=== PATIENT | male | born 1950 | race African-American/Black ===

== ENCOUNTER 2019-04-25 12:08 | Inpatient (IN) | payer MEDICARE, OTHER, SELFPAY ==
[2019-04-25 12:36] LABS: #Eosinphils 0.1 thou/uL (0.0-0.7); #Lymphocytes 2.3 thou/uL (1.20-3.40); #Monocytes 0.6 thou/uL (0.11-0.59); #Neutrophils 4.7 thou/uL (1.40-6.50); %Basophils 0.3 % (0.0-1.0); %Eosinophils 0.9 % (0.0-10.0); %Lymphocytes 29.7 % (21.0-51.0); %Monocytes 7.4 % (0.0-10.0); %Neutrophils 61.8 % (42.0-75.0); Mean Corpuscular HGB CONC 33.2 g/dL (32.0-36.0); Mean Corpuscular Hemoglobin 31.5 pg (27.0-31.0); Mean Platelet Volume 7.8 fL (7.4-10.4); Platelet Count 227 thou/uL (130-400); RBC Distribution Width 13.6 % (11.5-14.5); Red Blood Cell (RBC) Count 4.76 mill/uL (4.70-6.10); White Blood Cell (WBC) Count 7.6 thou/uL (4.8-10.8)
[2019-04-25 12:48] LABS: Acetaminophen Less than 6.0 mcg/mL (10.0-30.0); Alcohol Less than 10 mg/dL (Less than 10); Salicylate Less than 8.0 mg/dL (15.0-30.0)
[2019-04-25 12:57] LABS: ALT (SGPT) 10 U/L (8-55); AST (SGOT) 15 U/L (5-34); Albumin 4.4 g/dL (3.4-4.8); Alkaline Phosphatase 71 U/L (40-110); Anion Gap 13 mmol/L (10-20); BUN (Urea Nitrogen) 20 mg/dL (8.4-25.7); Bilirubin, Total 0.6 mg/dL (0.2-1.2); Calc. Creatinine Clearance 0 mL/min (70-130); Calcium 8.9 mg/dL (7.8-10.44); Carbon Dioxide 28 mmol/L (23-31); Chloride 102 mmol/L (98-107); Estimated GFR-MDRD 53; Globulin 2.6 g/dL (2.4-3.5); Glucose 139 mg/dL (80-115); Lipase 12 U/L (8-78); Potassium 3.6 mmol/L (3.5-5.1); Sodium 139 mmol/L (136-145)
--- NOTE | 2019-04-25 13:05 | CT ---
EXAM: Brain CT scan Without contrast: HISTORY: Altered mental status, history of prior brain mass removal COMPARISON: None FINDINGS: Extensive right frontal craniotomy. Focal area of encephalomalacia nearly replacing the anterior righ t temporal lobe region with some associated brain volume loss and some secondary dilatation of the frontal horn of the right lateral ventricle and temporal horn of the right lateral ventricle evidence for considerable brain volume loss. There is an area of abnormal attenuation soft tissue density which appears to be centered in the shelly on of the right cavernous sinus extending into the sellar and suprasellar region, medial temporal fossa, and posteriorly into the right anterior posterior fossa somewhat displacing the basilar artery . This appears to be most consistent with residual or recurrent tumor mass, presumably meningioma. Atrophy and chronic white matter ischemic change. No intra or extra-axial hemorrhage. The visualized sinuses and mastoids are clear of acute process. IMPRESSION: Extensive post right temporal craniotomy with encephalomalacia and some associated brain volume loss. Evidence for recurrent or residual tumor centered in the right cavernous sinus region as above, favor ed to be meningioma. Correlation with prior imaging done elsewhere is recommended.
[2019-04-25 13:10] LABS: CKMB 1.5 ng/mL (0-6.6)
[2019-04-25 13:43] LABS: Bilirubin Negative (Negative); Blood, Urine Negative (Negative); Clarity Clear (Clear); Glucose, Urine (Dipstick) Normal (Negative); Leukocyte Negative Leu/uL (Negative); Nitrite Negative (Negative); Protein, Urine (Dipstick) 20 mg/dL (Neg-Trace)
[2019-04-25 13:49] LABS: Amphetamine Not Detected (NotDetected); Barbiturates Screen Not Detected (NotDetected); Benzodiazepine Screen Not Detected (NotDetected); Cocaine Metabolite Screen Not Detected (NotDetected); Medtox Control Line Valid? VALID (VALID); Medtox Reader # READER 1; Methadone Not Detected (NotDetected); Methamphetamine Not Detected (NotDetected); Opiate Screen Not Detected (NotDetected); Oxycodone Screen Not Detected (NotDetected); Phencyclidine (PCP) Not Detected (NotDetected); THC/Cannabinoid Screen Not Detected (NotDetected); Tricyclic Screen Not Detected (NotDetected)
[2019-04-25] MEDS ORDERED: Aspirin Chewable 81 MG TAB ONE (14:45)
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
[2019-04-25] MEDS ORDERED: Acetaminophen 325 MG TAB PO PRN (20:00)
[2019-04-25] MEDS ORDERED: Lorazepam 2 MG/ML VIAL SLOW IVP PRN (20:00)
[2019-04-25 20:18] VITALS: BMI 28.0
[2019-04-25] MEDS: Famotidine 20 MG TAB PO SCH (21:07)
[2019-04-25 21:36] LABS: CKMB 1.2 ng/mL (0-6.6)
[2019-04-26 04:44] LABS: #Basophils 0.1 thou/uL (0.0-0.2); #Eosinphils 0.2 thou/uL (0.0-0.7); #Lymphocytes 3.4 thou/uL (1.20-3.40); #Monocytes 0.8 thou/uL (0.11-0.59); #Neutrophils 3.2 thou/uL (1.40-6.50); %Basophils 0.9 % (0.0-1.0); %Eosinophils 2.8 % (0.0-10.0); %Lymphocytes 43.9 % (21.0-51.0); %Monocytes 10.5 % (0.0-10.0); %Neutrophils 41.9 % (42.0-75.0); Hemoglobin 13.9 g/dL (14.0-18.0); Mean Corpuscular HGB CONC 32.5 g/dL (32.0-36.0); Mean Corpuscular Hemoglobin 30.8 pg (27.0-31.0); Mean Corpuscular Volume 94.6 fL (78.0-98.0); Mean Platelet Volume 7.7 fL (7.4-10.4); Platelet Count 200 thou/uL (130-400); RBC Distribution Width 13.5 % (11.5-14.5); Red Blood Cell (RBC) Count 4.51 mill/uL (4.70-6.10); White Blood Cell (WBC) Count 7.7 thou/uL (4.8-10.8)
[2019-04-26 05:01] LABS: Anion Gap 15 mmol/L (10-20); BUN (Urea Nitrogen) 16 mg/dL (8.4-25.7); Calc. Creatinine Clearance 109 mL/min (70-130); Calcium 8.9 mg/dL (7.8-10.44); Carbon Dioxide 25 mmol/L (23-31); Chloride 103 mmol/L (98-107); Estimated GFR-MDRD Greater than 90; Glucose 91 mg/dL (80-115); Potassium 3.6 mmol/L (3.5-5.1); Sodium 139 mmol/L (136-145)
[2019-04-26] MEDS: Famotidine 20 MG TAB PO SCH ×2 (08:29→21:27)
[2019-04-26] MEDS ORDERED: levETIRAcetam 500 MG TAB PO SCH (09:45)
--- NOTE | 2019-04-26 11:10 | PDOC.HOSPP ---
- Subjective Encounter Date: 04/26/19 Encounter Time: 11:08 Subjective: Mr. White was seen today in follow-up of probable seizure. he does not have any complaints today. - Objective Vital Signs & Weight: Vital Signs (12 hours) Temp Pulse Resp BP BP BP Pulse Ox 04/26/19 08:26 98.8 F 70 16 138/83 95 04/26/19 04:00 98.5 F 69 16 131/81 98 04/25/19 23:30 98.6 F 82 18 144/89 H 98 Weight Weight 266 lb 8 oz I&O: 04/25/19 04/26/19 04/27/19 06:59 06:59 06:59 Intake Total 310 Balance 310 Result Diagrams: 04/26/19 04:27 04/26/19 04:27 Additional Labs: Accuchecks 04/25/19 12:29 POC Glucose 145 H Hospitalist ROS - Medication Medications: Active Medications Generic Name Dose Route Start Last Admin Trade Name Freq PRN Reason Stop Dose Admin Famotidine 20 mg 04/25/19 21:00 04/26/19 08:29 Pepcid PO 20 mg BID LIZBETH Administration Influenza Virus Vaccine 180 mcg 04/26/19 21:00 04/26/19 08:30 Fluzone High-Dose 2019-20 Syr IM 04/26/19 21:01 Not Given .ONCE ONE Levetiracetam 500 mg 04/26/19 09:45 04/26/19 09:51 Keppra PO 04/26/19 11:45 500 mg NOW LIZBETH Administration Pneumococcal 13-Valent Conj Vacc 0.5 ml 04/26/19 21:00 04/26/19 08:30 Prevnar IM 04/26/19 21:01 Not Given .ONCE ONE - Exam Eye: PERRL, anicteric sclera Heart: RRR, no murmur, no gallops, no rubs, normal peripheral pulses Respiratory: CTAB, no wheezes, no rales, no ronchi, normal chest expansion, no tachypnea, normal percussion Gastrointestinal: soft, non-tender, non-distended, normal bowel sounds, no palpable masses, no hepatomegaly, no splenomegaly Extremities: no cyanosis, no clubbing, no edema Hosp A/P (1) Seizure Code(s): R56.9 - UNSPECIFIED CONVULSIONS Status: Acute (2) Brain mass Code(s): G93.89 - OTHER SPECIFIED DISORDERS OF BRAIN Status: Acute - Plan * Seizure - will await EEG results, and Neurology evaluation * Elevated troponin's- ? etiology- will check an Echo * Continue seizure precautions
--- NOTE | 2019-04-26 15:22 | EEG ---
Referring Physician: Kelin ADLER EEG # [id number] TEST TYPE: ROUTINE PORTABLE INPATIENT REPORT: AN EEG USING THE INTERNATIONAL TEN-TWENTY SYSTEM OF ELECTRODE PLACEMENT WAS PERFORMED. The waking background is a 8 hertz alpha frequency. There is superimposed theta frequency slowing seen over the right hemisphere. No epileptiform features were seen. The patient remained awake throughout the study. Photic stimulation was unremarkable. IMPRESSION: THIS IS AN ABNORMAL STUDY FOR THE FINDINGS OF FOCAL SLOWING OVER THE RIGHT HEMISPHERE CONSISTENT WITH A STRUCTURAL LESION. Phosphorus Processing Supervisor: CHRIS School Superintendent: [email or web address]
[2019-04-26] MEDS ORDERED: FLU VACC TS2019-20(65YR UP)/PF 180 MCG/0.5 ML SYRINGE IM ONE (21:00)
[2019-04-26] MEDS ORDERED: Prevnar 13-Val Conj/PF 0.5 ML SYRINGE IM ONE (21:00)
[2019-04-26] MEDS: levETIRAcetam 500 MG TAB PO SCH (21:27)
[2019-04-27] MEDS: levETIRAcetam 500 MG TAB PO SCH (09:19)
[2019-04-27] MEDS: Famotidine 20 MG TAB PO SCH (09:19)
[2019-04-27 12:09] VITALS: BP 130/82; TEMP 98.3
--- NOTE | 2019-04-27 12:18 | PDOC.HOSPP ---
- Subjective Encounter Date: 04/27/19 Encounter Time: 12:16 Subjective: Mr. White was seen today in follow-up of new onset seizure. He does not have any complaints today. - Objective Vital Signs & Weight: Vital Signs (12 hours) Temp Pulse Resp BP BP Pulse Ox 04/27/19 11:14 98.3 F 71 16 130/82 96 04/27/19 07:18 98.1 F 75 12 145/96 H 93 L 04/27/19 04:00 97.8 F 62 16 151/96 H 97 Weight Weight 266 lb 8 oz I&O: 04/26/19 04/27/19 04/28/19 06:59 06:59 06:59 Intake Total 310 260 Balance 310 260 Result Diagrams: 04/26/19 04:27 04/26/19 04:27 Hospitalist ROS - Medication Medications: Active Medications Generic Name Dose Route Start Last Admin Trade Name Freq PRN Reason Stop Dose Admin Famotidine 20 mg 04/25/19 21:00 04/27/19 09:19 Pepcid PO 20 mg BID LIZBETH Administration Levetiracetam 500 mg 04/26/19 21:00 04/27/19 09:19 Keppra PO 500 mg BID LIZBETH Administration - Exam Eye: PERRL Heart: RRR, no murmur, no gallops Respiratory: CTAB, no wheezes, no rales, no ronchi, normal chest expansion, no tachypnea, normal percussion Gastrointestinal: soft, non-tender, non-distended, normal bowel sounds, no palpable masses, no hepatomegaly Extremities: no cyanosis, no edema Hosp A/P (1) Seizure Code(s): R56.9 - UNSPECIFIED CONVULSIONS Status: Acute (2) Brain mass Code(s): G93.89 - OTHER SPECIFIED DISORDERS OF BRAIN Status: Acute - Plan * 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 * Continue Keppra as recommended by Neurology * No driving at least 6-12 months-discussed with the patient * HTN- will start Lisinopril- risks and benefits explained for both * Stable for discharge home
--- NOTE | 2019-04-28 04:25 | DIS ---
DATE OF ADMISSION: 04/25/2019 DATE OF DISCHARGE: 04/27/2019 PRIMARY CARE PHYSICIAN: At the [facility] in [place]. DISCHARGE DISPOSITION: Home. PRIMARY DISCHARGE DIAGNOSES: 1. New-onset seizure. 2. History of benign brain tumor. 3. Hypertension. 4. Probable meningioma. DISCHARGE MEDICATIONS: Include; 1. Lisinopril 5 mg daily. 2. Keppra 500 mg twice daily. 3. Flomax 0.4 mg daily. 4. He uses a Lidoderm patch p.r.n. 5. Latanoprost 0.05% one drop in each eye at bedtime. 6. Vitamin D3 at 50,000 units p.o. daily. 7. Atorvastatin 20 mg at bedtime. CODE STATUS: Full code. ALLERGIES: NO KNOWN DRUG ALLERGIES. IMAGING: During the hospital stay, the patient had a CT scan of the brain in which there was extensive post right temporal craniotomy with encephalomalacia with associated brain volume loss. There was evidence of recurrent or residual tumor centered around the right cavernous sinus. Favored to be a meningioma. The patient also had an echocardiogram in which the ejection fraction was estimated at 55% to 60%. There was some E to A flow reversal noted suggestive of diastolic dysfunction. HOSPITAL COURSE: Mr. White is a pleasant 68-year-old gentleman who presented to the emergency room after having an episode of altered mental status while he was at [employer]. This happened again when he was in the emergency room and it appears to be a partial seizure. He was admitted and Neurology was consulted. He was started on Keppra. EEG results were essentially nonspecific, but he did not have any seizure activity during the time. However, it is most likely a seizure. His troponins were elevated, but it is suspected this could be as a result of the acute seizure as well. The patient is currently stable. No complaints and will be discharged home in stable condition, to follow up at the [facility] in 1 to 2 weeks and also with his neurologist or Dr. Lockhart as instructed. He also was instructed that he cannot drive until he is cleared by the neurologist nor operate any heavy machinery or any type of water sports or activities. Job ID: [id number]
--- NOTE | 2019-04-28 05:48 | PQF ---
SAP Sludge Control Operator Crystal Reports Winform ViewerROBERSON WILLJAYA GARCÍA MD [id number] CLINICAL DOCUMENTATION CLARIFICATION FORM: POST DISCHARGE Addendum to original discharge summary date: ____ Late entry note date: __ DATE: 04/28/2019 ATTN:JAYA ADLER MD Please exercise your independent, professional judgment in responding to the clarification form. Clinical indicators are provided on the bottom of this form for your review Please check appropriate box(s): Kindly Provide whether Patient was now diagnosed with recurrent brain tumor or Hx of brain tumor [ ] Diagnosed with recurrent brain tumor [ X ] Diagnosed with Hx of brain tumor [ ] Other diagnosis [ ] Unable to determine In addition, please specify: Present on Admission (POA): [ X ] Yes [ ] No [ ] Unable to determine For continuity of documentation, please document condition throughout progress notes and discharge summary. Thank You. CLINICAL INDICATORS - SIGNS / SYMPTOMS / LABS Sudden AMS - Documented in H&P on 04/25 by JAYA ADLER MD Seizure due to Previous Brain Tumor - Documented in Hospital PNs on 04/25 by JAYA ADLER MD Brain Mass - Documented in Hospital PNs on 04/25 by JAYA ADLER MD There is evidence of recurrent or residual tumor centered around RT vacernous sinus region favored to be a meningioma - Documented in Hospital PNs on 04/25 by JAYA ADLER MD Posable meningioma - Documented in DS on 04/27 by JAYA ADLER MD RISK FACTORS HTN - Documented in Hospital PNs on 04/25 by JAYA ADLER MD hx of Meningioma - Documented in Hospital PNs on 04/25 by JAYA ADLER MD New onset of Seizure - Documented in Hospital PNs on 04/25 by JAYA ADLER MD TREATMENT: Continue Keppra as recommended by Neurology - Documented in Hospital PNs on by JAYA ADLER MD Brain CT SAP Sludge Control Operator Crystal Reports Winform Viewer (This form is maintained as a part of the permanent medical record) 2014 [employer]. All Rights Reserved [email or web address] [not provided] MTDD
--- NOTE | 2019-04-29 | PQF ---
SAP Net Developer Software Engineer C Crystal Reports Winform ViewerROBERSON WILL JAYA ADLER MD [id number] [facility] [place] [place] [id number] CLINICAL DOCUMENTATION CLARIFICATION FORM: POST DISCHARGE Addendum to original discharge summary date: ____ Late entry note date: __ DATE: 04/28/2019 ATTN:JAYA ADLER MD Please exercise your independent, professional judgment in responding to the clarification form. Clinical indicators are provided on the bottom of this form for your review Please check appropriate box(s): [ ] Encephalopathy: Type: [ ] Acute [ ] Subacute [ ] Chronic Etiology: [ ] Hypertensive [ ] Metabolic [ ] Toxic [ ] Unspecified [ ] in the setting of underlying dementia [ ] Other (please specify) [ ] Transient Alteration of Awareness [ X] Other diagnosis ___Seizure disorder with acute seizure [ ] Unable to determine In addition, please specify: Present on Admission (POA): [X ] Yes [ ] No [ ] Unable to determine For continuity of documentation, please document condition throughout progress notes and discharge summary. Thank You. CLINICAL INDICATORS - SIGNS / SYMPTOMS / LABS Sudden AMS - Documented in H&P on 04/25 by JAYA ADLER MD Possible meningioma - Documented DS on 04/27 by JAYA VELIZ MD Seizure due to previous brain tumor - Documented in Hospital PNs on 04/25 by JAYA ADLER MD New onset of seizure - Documented in Hospital PNs on 04/25 by JAYA ADLER MD Post RT temporal craniotomy with encephalomalacia with associated brain volume loss - Documented DS on 04/27 by JAYA VELIZ MD Partial seizure in Emergency room - Documented DS on 04/27 by JAYA VELIZ MD RISK FACTORS HTN Hx of meningioma - Documented in H&P on 04/25 by JAYA ADLER MD Brain Mass TREATMENTS: Continue Keppra - Documented in Hospital PNs on 04/25 by JAYA ADLER MD EEG SAP Net Developer Software Engineer C Crystal Reports Winform Viewer (This form is maintained as a part of the permanent medical record) 2014 [employer]. All Rights Reserved [email or web address] [not provided] MTDD
--- NOTE | 2019-05-05 03:43 | PQF ---
SAP Sewage Plant Operator Crystal Reports Winform ViewerREYNOL[facility] JAYA BROOKS MD [id number] [facility] [place] [place] [id number] CLINICAL DOCUMENTATION CLARIFICATION FORM: POST DISCHARGE Addendum to original discharge summary date: ____ Late entry note date: __ DATE: 05/05/2019 ATTN: JAYA ADLER MD Please exercise your independent, professional judgment in responding to the clarification form. Clinical indicators are provided on the bottom of this form for your review Please check appropriate box(s) to clarify if the following diagnosis has been ruled in or ruled out: NSTEMI____(CDI/Coding list diagnosis here) [ ] Ruled in diagnosis [ ] Continue to treat [ ] Resolved [ ] Ruled out diagnosis [ ] Cannot rule out diagnosis [ X ] Other diagnosis _Elevated troponins due to seizure [ ] Unable to determine In addition, please specify: Present on Admission (POA): [ X] Yes [ ] No [ ] Unable to determine For continuity of documentation, please document condition throughout progress notes and discharge summary. Thank You. CLINICAL INDICATORS - SIGNS / SYMPTOMS / LABS Elevated Troponin 0.229 on 04/25 and 0.172 on 04/26 - Documented in Laboratory His troponin were elevated, but it is suspected this could be as result of the acute seizure as well - Documented in DS on 04/27 by Eugene Baxter RISK FACTORS HTN Recurrent brain tumor TREATMENTS EKG Echocardiogram Aspirin 81 mg - Medication report SAP Sewage Plant Operator Crystal Reports Winform Viewer(This form is maintained as a part of the permanent medical record) 2014 [employer]. All Rights Reserved [email or web address] [not provided] MTDD
== END 2019-04-27 15:20 | disposition home or self-care (01) | DRG 101 ==
LOC: ERS 12:08 → 2NO 18:36 → INTOOBSV 18:36 → OBSVTOIN 18:36 → 2SE 04-26 13:08
PROVIDERS: ADMIT Internal Medicine; ATTEND Internal Medicine
PROC: 4A023FZ Measurement of Cardiac Rhythm, Percutaneous Approach (ICD-10-PCS; principal; 2019-04-26)
PROC: 4A0234Z Measurement of Cardiac Electrical Activity, Percutaneous Approach (ICD-10-PCS; 2019-04-26)
DX: G40.109 Localization-related (focal) (partial) symptomatic epilepsy and epileptic syndromes with simple partial seizures, not intractable, without status epilepticus (principal); G93.89 Other specified disorders of brain; I10 Essential (primary) hypertension; Z98.890 Other specified postprocedural states; R40.2412 Glasgow coma scale score 13-15, at arrival to emergency department
CPT/HCPCS: 36415; 36416; 70450; 80048; 80053; 80306; 80307; 81003; 82553; 83690; 84146; 84484; 85025; 93005; 93306; 95816; 95819

== ENCOUNTER 2021-06-24 12:30 | Inpatient (IN) | payer MEDICARE ==
[2021-06-24] MEDS ORDERED: Cefepime 2 GM VIAL ONE (12:59)
[2021-06-24 13:31] LABS: #Lymphocytes 1.6 thou/uL (1.20-3.40); #Monocytes 0.5 thou/uL (0.11-0.59); %Eosinophils 0.2 % (0.0-10.0); %Lymphocytes 12.8 % (21.0-51.0); %Monocytes 4.3 % (0.0-10.0); %Neutrophils 82.6 % (42.0-75.0); Hemoglobin 16.2 g/dL (14.0-18.0); Mean Corpuscular HGB CONC 33.5 g/dL (32.0-36.0); Mean Corpuscular Hemoglobin 32.2 pg (27.0-31.0); Mean Corpuscular Volume 95.9 fL (78.0-98.0); Mean Platelet Volume 8.3 fL (7.4-10.4); Platelet Count 223 thou/uL (130-400); RBC Distribution Width 13.3 % (11.5-14.5); Red Blood Cell (RBC) Count 5.04 mill/uL (4.70-6.10); White Blood Cell (WBC) Count 12.1 thou/uL (4.8-10.8)
[2021-06-24 13:34] LABS: Bacteria/HPF None Seen HPF (None Seen); Bilirubin Negative (Negative); Blood, Urine Negative (Negative); Clarity Clear (Clear); Glucose, Urine (Dipstick) Normal (Negative); Ketone, Urine 10 mg/dL (Negative); Leukocyte Negative Leu/uL (Negative); Nitrite Negative (Negative); Protein, Urine (Dipstick) 50 mg/dL (Neg-Trace); RBC/HPF None Seen HPF (0-3); Specific Gravity, Urine 1.027 (1.002-1.036); Squamous Epithelial None Seen HPF (0-3); WBC/HPF 0-3 HPF (0-3)
[2021-06-24 13:38] LABS: Amphetamine Not Detected (NotDetected); Barbiturates Screen Not Detected (NotDetected); Benzodiazepine Screen Not Detected (NotDetected); Cocaine Metabolite Screen Not Detected (NotDetected); Methadone Not Detected (NotDetected); Methamphetamine Not Detected (NotDetected); Opiate Screen Not Detected (NotDetected); Oxycodone Screen Not Detected (NotDetected); Phencyclidine (PCP) Not Detected (NotDetected); THC/Cannabinoid Screen Not Detected (NotDetected); Tricyclic Screen Not Detected (NotDetected)
[2021-06-24 13:53] LABS: Acetaminophen Less than 6.0 mcg/mL (10.0-30.0); Alcohol Less than 10 mg/dL (Less than 10); Salicylate Less than 8.0 mg/dL (15.0-30.0)
[2021-06-24 14:16] LABS: CKMB 5.4 ng/mL (0-6.6)
[2021-06-24 15:15] LABS: Albumin 3.9 g/dL (3.4-4.8)
[2021-06-24 15:16] LABS: Chloride 104 mmol/L (98-107); Potassium 3.4 mmol/L (3.5-5.1); Sodium 142 mmol/L (136-145)
[2021-06-24 15:17] LABS: Calcium 9.7 mg/dL (7.8-10.44)
[2021-06-24 15:18] LABS: Globulin 3.7 g/dL (2.4-3.5); Glucose 103 mg/dL (83-110); Protein, Total 7.6 g/dL (5.8-8.1)
[2021-06-24 15:19] LABS: Anion Gap 24 mmol/L (10-20); Carbon Dioxide 17 mmol/L (23-31)
[2021-06-24] MEDS ORDERED: Vancomycin 1 GM/200 ML BAG ONE (15:19)
[2021-06-24 15:20] LABS: Alkaline Phosphatase 82 U/L (40-110); Bilirubin, Total 0.6 mg/dL (0.2-1.2)
[2021-06-24 15:21] LABS: Calc. Creatinine Clearance 0 mL/min (70-130)
[2021-06-24 15:22] LABS: BUN (Urea Nitrogen) 26 mg/dL (8.4-25.7)
[2021-06-24 15:23] LABS: AST (SGOT) 85 U/L (5-34)
[2021-06-24 15:24] LABS: ALT (SGPT) 45 U/L (8-55); CK (CPK) 2275 U/L (30-200); Lipase 59 U/L (8-78)
[2021-06-24] MEDS ORDERED: Guaifenesin DM 100-10/5 ML UDCUP PO PRN (15:33)
[2021-06-24] MEDS ORDERED: HYDROcodone/Acetaminophen 5/325 mg Tablet PO PRN (15:33)
[2021-06-24] MEDS ORDERED: Loperamide HCl 2 MG CAP PO PRN (15:33)
[2021-06-24] MEDS ORDERED: Ondansetron PF 4 MG/2 ML Vial IVP PRN (15:33)
[2021-06-24] MEDS ORDERED: Senokot S 8.6-50 MG TAB PO PRN (15:33)
[2021-06-24] MEDS ORDERED: Acetaminophen 325 MG TAB PO PRN (15:33)
[2021-06-24 17:04] LABS: Troponin I 0.031 ng/mL (< 0.028)
[2021-06-24] MEDS ORDERED: FLU VACC QS2021-22(65YR UP)/PF 240 MCG/0.7 ML SYRINGE IM ONE (18:00)
[2021-06-24] MEDS: Sodium Chloride 0.9% 1,000 ML IV SCH (19:10)
[2021-06-24] MEDS: Famotidine/PF 20 mg/2ml Vial SLOW IVP SCH (20:20)
[2021-06-24 20:22] LABS: SARS-CoV-2 NAA Rapid Test DETECTED (NotDetected)
[2021-06-24 20:35] LABS: Troponin I 0.054 ng/mL (< 0.028)
[2021-06-25 05:43] LABS: #Monocytes 0.7 thou/uL (0.11-0.59); #Neutrophils 5.9 thou/uL (1.40-6.50); %Basophils 0.4 % (0.0-1.0); %Eosinophils 0.3 % (0.0-10.0); %Monocytes 8.3 % (0.0-10.0); %Neutrophils 68.1 % (42.0-75.0); Hemoglobin 13.7 g/dL (14.0-18.0); Mean Corpuscular Hemoglobin 31.5 pg (27.0-31.0); Mean Corpuscular Volume 95.4 fL (78.0-98.0); Mean Platelet Volume 7.9 fL (7.4-10.4); Platelet Count 195 thou/uL (130-400); RBC Distribution Width 13.4 % (11.5-14.5); Red Blood Cell (RBC) Count 4.36 mill/uL (4.70-6.10); White Blood Cell (WBC) Count 8.6 thou/uL (4.8-10.8)
[2021-06-25 06:06] LABS: Anion Gap 24 mmol/L (10-20); BUN (Urea Nitrogen) 23 mg/dL (8.4-25.7); Calc. Creatinine Clearance 65 mL/min (70-130); Calcium 8.3 mg/dL (7.8-10.44); Carbon Dioxide 13 mmol/L (23-31); Chloride 108 mmol/L (98-107); Glucose 84 mg/dL (83-110); Potassium 3.1 mmol/L (3.5-5.1); Sodium 142 mmol/L (136-145)
[2021-06-25] MEDS: Sodium Chloride 0.9% 1,000 ML IV SCH ×2 (08:19→23:42)
[2021-06-25] MEDS: Zinc Sulfate 220 MG CAP PO SCH (08:20)
[2021-06-25] MEDS: Enoxaparin Sodium 40 MG/0.4 ML SYRINGE SC SCH (08:20)
[2021-06-25] MEDS: Famotidine/PF 20 mg/2ml Vial SLOW IVP SCH ×2 (08:20→21:20)
[2021-06-25] MEDS ORDERED: Non-Formulary Item 1 EACH (Cholecalciferol (Vitamin D3) [Vitamin D3] 5,000 UNIT Capsule) PO SCH (09:15)
[2021-06-25] MEDS ORDERED: levETIRAcetam in NS 1,000 MG in Premix Bag 1 BAG IVPB SCH (10:15)
[2021-06-25] MEDS: Hydrocortisone 10 mg Tablet PO SCH ×2 (11:28→21:20)
[2021-06-25] MEDS: cefTRIAXone\\ROCEPHIN 1 GM in Sodium Chloride 0.9% 100 ML IVPB SCH (15:12)
[2021-06-25] MEDS: levETIRAcetam in NS 500 MG in Premix Bag 1 BAG IVPB SCH (21:19)
[2021-06-25] MEDS: Latanoprost 0.005% Ophth Soln 2.5 ml Bottle EA EYE SCH (21:19)
[2021-06-25] MEDS: Atorvastatin Calcium 20 MG TAB PO SCH (21:20)
[2021-06-25] MEDS: Cholecalciferol 1,000 UNITS (25 MCG) TAB PO SCH (21:20)
[2021-06-26 08:36] LABS: Hemoglobin 12.4 g/dL (14.0-18.0); Mean Corpuscular HGB CONC 33.1 g/dL (32.0-36.0); Mean Corpuscular Hemoglobin 31.4 pg (27.0-31.0); Mean Corpuscular Volume 94.8 fL (78.0-98.0); Platelet Count 173 thou/uL (130-400); RBC Distribution Width 13.4 % (11.5-14.5); Red Blood Cell (RBC) Count 3.95 mill/uL (4.70-6.10); White Blood Cell (WBC) Count 6.7 thou/uL (4.8-10.8)
[2021-06-26 08:40] LABS: Anion Gap 4 mmol/L (10-20); BUN (Urea Nitrogen) 13 mg/dL (8.4-25.7); Calc. Creatinine Clearance 80 mL/min (70-130); Calcium 8.3 mg/dL (7.8-10.44); Carbon Dioxide 30 mmol/L (23-31); Chloride 111 mmol/L (98-107); Glucose 130 mg/dL (83-110); Potassium 3.2 mmol/L (3.5-5.1); Sodium 142 mmol/L (136-145)
[2021-06-26] MEDS: Famotidine/PF 20 mg/2ml Vial SLOW IVP SCH ×2 (08:58→20:42)
[2021-06-26] MEDS: Enoxaparin Sodium 40 MG/0.4 ML SYRINGE SC SCH (08:58)
[2021-06-26] MEDS: Tamsulosin HCl 0.4 MG CAP PO SCH (08:59)
[2021-06-26] MEDS: Zinc Sulfate 220 MG CAP PO SCH (08:59)
[2021-06-26] MEDS: Hydrocortisone 10 mg Tablet PO SCH ×3 (08:59→20:42)
[2021-06-26] MEDS: levETIRAcetam in NS 500 MG in Premix Bag 1 BAG IVPB SCH (09:00)
[2021-06-26] MEDS: Lisinopril 5 MG TAB PO SCH (09:03)
[2021-06-26 10:09] LABS: Band 9 % (5-11); Lymphocytes 30 % (21-51); MDiff Complete? YES; Monocytes 6 % (0-10); Neutrophil 54 % (42-75); RBC Morphology Normal; Reactive Lymphocytes 1 % (0-10)
[2021-06-26] MEDS: Sodium Chloride 0.9% 1,000 ML IV SCH ×2 (10:37→23:30)
[2021-06-26] MEDS: cefTRIAXone\\ROCEPHIN 1 GM in Sodium Chloride 0.9% 100 ML IVPB SCH (14:36)
[2021-06-26] MEDS ORDERED: VANCOMYCIN 1.75 GM/350 ML BAG 1.75 GM in Premix Bag 1 BAG IVPB SCH (16:00)
[2021-06-26] MEDS: levETIRAcetam 500 MG TAB PO SCH (20:42)
[2021-06-26] MEDS: Atorvastatin Calcium 20 MG TAB PO SCH (20:42)
[2021-06-26] MEDS: Cholecalciferol 1,000 UNITS (25 MCG) TAB PO SCH (20:42)
[2021-06-26] MEDS: Latanoprost 0.005% Ophth Soln 2.5 ml Bottle EA EYE SCH (20:43)
[2021-06-26 22:44] LABS: Vancomycin, Trough 20.7 ug/mL
[2021-06-27] MEDS: VANCOMYCIN 1.25 GM/250 ML BAG 1.25 GM in Premix Bag 1 BAG IVPB SCH ×2 (05:00→17:30)
[2021-06-27] MEDS: Lisinopril 5 MG TAB PO SCH (08:18)
[2021-06-27] MEDS: Enoxaparin Sodium 40 MG/0.4 ML SYRINGE SC SCH (08:18)
[2021-06-27] MEDS: Hydrocortisone 10 mg Tablet PO SCH ×3 (08:18→21:52)
[2021-06-27] MEDS: levETIRAcetam 500 MG TAB PO SCH ×2 (08:21→21:52)
[2021-06-27] MEDS: Famotidine/PF 20 mg/2ml Vial SLOW IVP SCH ×2 (08:21→21:52)
[2021-06-27] MEDS: Zinc Sulfate 220 MG CAP PO SCH (08:21)
[2021-06-27] MEDS: Tamsulosin HCl 0.4 MG CAP PO SCH (08:21)
[2021-06-27 08:52] LABS: Lactic Acid 1.1 mmol/L (0.5-2.2)
[2021-06-27 09:44] LABS: Chloride 111 mmol/L (98-107); Sodium 141 mmol/L (136-145)
[2021-06-27 09:45] LABS: Calcium 8.4 mg/dL (7.8-10.44)
[2021-06-27 09:46] LABS: Glucose 90 mg/dL (83-110)
[2021-06-27 09:47] LABS: Anion Gap 12 mmol/L (10-20); Carbon Dioxide 21 mmol/L (23-31)
[2021-06-27 09:49] LABS: Calc. Creatinine Clearance 112 mL/min (70-130)
[2021-06-27 09:50] LABS: BUN (Urea Nitrogen) 7 mg/dL (8.4-25.7)
[2021-06-27] MEDS ORDERED: Potassium Chloride 20 MEQ TAB PO SCH (10:45)
[2021-06-27] MEDS: Sodium Chloride 0.9% 1,000 ML IV SCH ×2 (11:41→22:26)
[2021-06-27] MEDS: cefTRIAXone\\ROCEPHIN 1 GM in Sodium Chloride 0.9% 100 ML IVPB SCH (16:44)
[2021-06-27] MEDS: Latanoprost 0.005% Ophth Soln 2.5 ml Bottle EA EYE SCH (21:52)
[2021-06-27] MEDS: Cholecalciferol 1,000 UNITS (25 MCG) TAB PO SCH (21:52)
[2021-06-27] MEDS: Atorvastatin Calcium 20 MG TAB PO SCH (21:52)
[2021-06-28 03:36] LABS: Vancomycin, Trough 19.1 ug/mL
[2021-06-28] MEDS: VANCOMYCIN 1.25 GM/250 ML BAG 1.25 GM in Premix Bag 1 BAG IVPB SCH (03:48)
[2021-06-28] MEDS: Famotidine/PF 20 mg/2ml Vial SLOW IVP SCH ×2 (08:17→20:09)
[2021-06-28] MEDS: Lisinopril 5 MG TAB PO SCH (08:17)
[2021-06-28] MEDS: levETIRAcetam 500 MG TAB PO SCH ×2 (08:17→20:09)
[2021-06-28] MEDS: Enoxaparin Sodium 40 MG/0.4 ML SYRINGE SC SCH (08:17)
[2021-06-28] MEDS: Hydrocortisone 10 mg Tablet PO SCH ×3 (08:17→20:09)
[2021-06-28] MEDS: Zinc Sulfate 220 MG CAP PO SCH (08:18)
[2021-06-28] MEDS: Tamsulosin HCl 0.4 MG CAP PO SCH (08:18)
[2021-06-28] MEDS: Aspirin 81 mg Enteric Coated Tablet PO SCH (09:24)
[2021-06-28] MEDS: Sodium Chloride 0.9% 1,000 ML IV SCH (12:19)
[2021-06-28] MEDS: cefTRIAXone\\ROCEPHIN 1 GM in Sodium Chloride 0.9% 100 ML IVPB SCH (15:40)
[2021-06-28] MEDS: Atorvastatin Calcium 20 MG TAB PO SCH (20:09)
[2021-06-28] MEDS: Latanoprost 0.005% Ophth Soln 2.5 ml Bottle EA EYE SCH (20:09)
[2021-06-28] MEDS: Cholecalciferol 1,000 UNITS (25 MCG) TAB PO SCH (20:09)
[2021-06-29] MEDS: Sodium Chloride 0.9% 1,000 ML IV SCH (03:50)
[2021-06-29 05:07] LABS: #Basophils 0.1 thou/uL (0.0-0.2); #Eosinphils 0.1 thou/uL (0.0-0.7); #Lymphocytes 2.2 thou/uL (1.20-3.40); #Monocytes 0.8 thou/uL (0.11-0.59); #Neutrophils 2.6 thou/uL (1.40-6.50); %Basophils 0.9 % (0.0-1.0); %Eosinophils 1.9 % (0.0-10.0); %Lymphocytes 38.1 % (21.0-51.0); %Monocytes 13.8 % (0.0-10.0); %Neutrophils 45.3 % (42.0-75.0); Hemoglobin 11.6 g/dL (14.0-18.0); Mean Corpuscular HGB CONC 34.2 g/dL (32.0-36.0); Mean Corpuscular Hemoglobin 31.8 pg (27.0-31.0); Mean Corpuscular Volume 93.1 fL (78.0-98.0); Mean Platelet Volume 7.6 fL (7.4-10.4); Platelet Count 239 thou/uL (130-400); RBC Distribution Width 13.3 % (11.5-14.5); Red Blood Cell (RBC) Count 3.63 mill/uL (4.70-6.10); White Blood Cell (WBC) Count 5.7 thou/uL (4.8-10.8)
[2021-06-29 05:43] LABS: Anion Gap 12 mmol/L (10-20); BUN (Urea Nitrogen) 6 mg/dL (8.4-25.7); Calc. Creatinine Clearance 113 mL/min (70-130); Calcium 8.8 mg/dL (7.8-10.44); Carbon Dioxide 27 mmol/L (23-31); Chloride 106 mmol/L (98-107); Glucose 87 mg/dL (83-110); Sodium 142 mmol/L (136-145)
[2021-06-29 05:46] LABS: Potassium 2.6 mmol/L (3.5-5.1)
[2021-06-29] MEDS: Aspirin 81 mg Enteric Coated Tablet PO SCH (08:15)
[2021-06-29] MEDS: Famotidine/PF 20 mg/2ml Vial SLOW IVP SCH (08:15)
[2021-06-29] MEDS: Enoxaparin Sodium 40 MG/0.4 ML SYRINGE SC SCH (08:15)
[2021-06-29] MEDS: Lisinopril 5 MG TAB PO SCH (08:16)
[2021-06-29] MEDS: Zinc Sulfate 220 MG CAP PO SCH (08:16)
[2021-06-29] MEDS: Tamsulosin HCl 0.4 MG CAP PO SCH (08:16)
[2021-06-29] MEDS: levETIRAcetam 500 MG TAB PO SCH ×2 (08:16→20:34)
[2021-06-29] MEDS: Hydrocortisone 10 mg Tablet PO SCH ×3 (08:16→20:32)
[2021-06-29] MEDS: Potassium Chloride 20 MEQ TAB PO SCH ×3 (08:59→17:12)
[2021-06-29] MEDS ORDERED: Iopamidol 370 76% 100 ML VIAL ONE (09:28)
[2021-06-29] MEDS: cefTRIAXone\\ROCEPHIN 1 GM in Sodium Chloride 0.9% 100 ML IVPB SCH (15:46)
[2021-06-29] MEDS: Cholecalciferol 1,000 UNITS (25 MCG) TAB PO SCH (20:32)
[2021-06-29] MEDS: Atorvastatin Calcium 20 MG TAB PO SCH (20:32)
[2021-06-29] MEDS: Famotidine 20 MG TAB PO SCH (20:32)
[2021-06-29] MEDS: Latanoprost 0.005% Ophth Soln 2.5 ml Bottle EA EYE SCH (20:33)
[2021-06-29] MEDS ORDERED: Electrolyte Replacement Protocol FS PRN (23:00)
[2021-06-30 03:10] LABS: Hemoglobin A1c 6.3 % (4.0-6.0)
[2021-06-30 03:22] LABS: Anion Gap 11 mmol/L (10-20); BUN (Urea Nitrogen) 5 mg/dL (8.4-25.7); Calc. Creatinine Clearance 116 mL/min (70-130); Carbon Dioxide 28 mmol/L (23-31); Chloride 105 mmol/L (98-107); Glucose 86 mg/dL (83-110); Sodium 141 mmol/L (136-145)
[2021-06-30 03:23] LABS: Cardiac Risk 5.6 (Less than 4.5)
[2021-06-30] MEDS ORDERED: Potassium Chloride 20 MEQ TAB PO SCH ×2 (04:00→20:00)
[2021-06-30] MEDS: Enoxaparin Sodium 40 MG/0.4 ML SYRINGE SC SCH (09:59)
[2021-06-30] MEDS: Hydrocortisone 10 mg Tablet PO SCH ×3 (10:00→20:46)
[2021-06-30] MEDS: Famotidine 20 MG TAB PO SCH ×2 (10:00→20:45)
[2021-06-30] MEDS: Aspirin 81 mg Enteric Coated Tablet PO SCH (10:00)
[2021-06-30] MEDS: Lisinopril 5 MG TAB PO SCH (10:00)
[2021-06-30] MEDS: Tamsulosin HCl 0.4 MG CAP PO SCH (10:00)
[2021-06-30] MEDS: Zinc Sulfate 220 MG CAP PO SCH (10:00)
[2021-06-30] MEDS: levETIRAcetam 500 MG TAB PO SCH ×2 (10:00→20:45)
[2021-06-30 10:20] LABS: Potassium 2.7 mmol/L (3.5-5.1)
[2021-06-30] MEDS: Potassium Chloride 20 MEQ TAB PO SCH ×2 (10:47→15:42)
[2021-06-30 15:18] LABS: Syphilis Antibody Nonreactive (Nonreactive); Syphilis Antibody Index 0.05 S/CO (<1.00 Non-Reactive)
[2021-06-30] MEDS: cefTRIAXone\\ROCEPHIN 1 GM in Sodium Chloride 0.9% 100 ML IVPB SCH (15:41)
[2021-06-30 19:09] LABS: Potassium 3.5 mmol/L (3.5-5.1)
[2021-06-30] MEDS: Cholecalciferol 1,000 UNITS (25 MCG) TAB PO SCH (20:45)
[2021-06-30] MEDS: Atorvastatin Calcium 20 MG TAB PO SCH (20:45)
[2021-06-30] MEDS: Latanoprost 0.005% Ophth Soln 2.5 ml Bottle EA EYE SCH (20:50)
[2021-06-30 23:29] LABS: Anion Gap 12 mmol/L (10-20); BUN (Urea Nitrogen) 6 mg/dL (8.4-25.7); Calc. Creatinine Clearance 116 mL/min (70-130); Calcium 9.1 mg/dL (7.8-10.44); Carbon Dioxide 26 mmol/L (23-31); Chloride 103 mmol/L (98-107); Glucose 96 mg/dL (83-110); Magnesium 1.7 mg/dL (1.6-2.6); Phosphorus 2.8 mg/dL (2.3-4.7); Potassium 3.4 mmol/L (3.5-5.1); Sodium 138 mmol/L (136-145)
[2021-06-30 23:32] LABS: Troponin I 0.014 ng/mL (< 0.028)
[2021-07-01] MEDS ORDERED: Potassium Chloride 20 MEQ TAB PO SCH (02:00)
[2021-07-01] MEDS ORDERED: Magnesium 2 GM/50 ML 2 GM in Premix Bag 1 BAG IVPB SCH (02:00)
[2021-07-01 02:19] LABS: Potassium 3.9 mmol/L (3.5-5.1)
[2021-07-01 08:19] LABS: Magnesium 2.1 mg/dL (1.6-2.6)
[2021-07-01] MEDS: Hydrocortisone 10 mg Tablet PO SCH ×3 (09:30→20:15)
[2021-07-01] MEDS: Lisinopril 5 MG TAB PO SCH (09:30)
[2021-07-01] MEDS: Aspirin 81 mg Enteric Coated Tablet PO SCH (09:30)
[2021-07-01] MEDS: Tamsulosin HCl 0.4 MG CAP PO SCH (09:30)
[2021-07-01] MEDS: levETIRAcetam 500 MG TAB PO SCH ×2 (09:30→20:15)
[2021-07-01] MEDS: Enoxaparin Sodium 40 MG/0.4 ML SYRINGE SC SCH (09:30)
[2021-07-01] MEDS: Zinc Sulfate 220 MG CAP PO SCH (09:30)
[2021-07-01] MEDS: Famotidine 20 MG TAB PO SCH ×2 (09:30→20:15)
[2021-07-01] MEDS: cefTRIAXone\\ROCEPHIN 1 GM in Sodium Chloride 0.9% 100 ML IVPB SCH (15:44)
[2021-07-01] MEDS: Cholecalciferol 1,000 UNITS (25 MCG) TAB PO SCH (20:15)
[2021-07-01] MEDS: Latanoprost 0.005% Ophth Soln 2.5 ml Bottle EA EYE SCH (20:16)
[2021-07-01] MEDS: Atorvastatin Calcium 20 MG TAB PO SCH (20:16)
[2021-07-02] MEDS: Aspirin 81 mg Enteric Coated Tablet PO SCH (09:06)
[2021-07-02] MEDS: Famotidine 20 MG TAB PO SCH ×2 (09:07→21:14)
[2021-07-02] MEDS: Hydrocortisone 10 mg Tablet PO SCH ×3 (09:07→21:13)
[2021-07-02] MEDS: Enoxaparin Sodium 40 MG/0.4 ML SYRINGE SC SCH (09:07)
[2021-07-02] MEDS: levETIRAcetam 500 MG TAB PO SCH ×2 (09:08→21:21)
[2021-07-02] MEDS: Tamsulosin HCl 0.4 MG CAP PO SCH (09:08)
[2021-07-02] MEDS: Lisinopril 5 MG TAB PO SCH (09:08)
[2021-07-02] MEDS: Zinc Sulfate 220 MG CAP PO SCH (09:09)
[2021-07-02] MEDS: cefTRIAXone\\ROCEPHIN 1 GM in Sodium Chloride 0.9% 100 ML IVPB SCH (15:06)
[2021-07-02] MEDS: Atorvastatin Calcium 20 MG TAB PO SCH (21:14)
[2021-07-02] MEDS: Cholecalciferol 1,000 UNITS (25 MCG) TAB PO SCH (21:16)
[2021-07-02] MEDS: Latanoprost 0.005% Ophth Soln 2.5 ml Bottle EA EYE SCH (21:17)
[2021-07-03] MEDS: levETIRAcetam 500 MG TAB PO SCH ×2 (08:18→20:09)
[2021-07-03] MEDS: Enoxaparin Sodium 40 MG/0.4 ML SYRINGE SC SCH (08:19)
[2021-07-03] MEDS: Zinc Sulfate 220 MG CAP PO SCH (08:19)
[2021-07-03] MEDS: Tamsulosin HCl 0.4 MG CAP PO SCH (08:19)
[2021-07-03] MEDS: Hydrocortisone 10 mg Tablet PO SCH ×3 (08:19→20:10)
[2021-07-03] MEDS: Famotidine 20 MG TAB PO SCH ×2 (08:19→20:09)
[2021-07-03] MEDS: Lisinopril 5 MG TAB PO SCH (08:19)
[2021-07-03] MEDS: Aspirin 81 mg Enteric Coated Tablet PO SCH (08:19)
[2021-07-03 08:48] VITALS: BMI 25.4
[2021-07-03] MEDS: cefTRIAXone\\ROCEPHIN 1 GM in Sodium Chloride 0.9% 100 ML IVPB SCH (15:24)
[2021-07-03] MEDS: Cholecalciferol 1,000 UNITS (25 MCG) TAB PO SCH (20:09)
[2021-07-03] MEDS: Atorvastatin Calcium 20 MG TAB PO SCH (20:10)
[2021-07-03] MEDS: Latanoprost 0.005% Ophth Soln 2.5 ml Bottle EA EYE SCH (20:11)
[2021-07-04] MEDS: Enoxaparin Sodium 40 MG/0.4 ML SYRINGE SC SCH (08:49)
[2021-07-04] MEDS: Tamsulosin HCl 0.4 MG CAP PO SCH (08:50)
[2021-07-04] MEDS: Famotidine 20 MG TAB PO SCH ×2 (08:50→20:22)
[2021-07-04] MEDS: Lisinopril 5 MG TAB PO SCH (08:50)
[2021-07-04] MEDS: Hydrocortisone 10 mg Tablet PO SCH ×3 (08:50→20:23)
[2021-07-04] MEDS: Zinc Sulfate 220 MG CAP PO SCH (08:50)
[2021-07-04] MEDS: Aspirin 81 mg Enteric Coated Tablet PO SCH (08:50)
[2021-07-04] MEDS: levETIRAcetam 500 MG TAB PO SCH ×2 (08:50→20:25)
[2021-07-04] MEDS: Cholecalciferol 1,000 UNITS (25 MCG) TAB PO SCH (20:22)
[2021-07-04] MEDS: Atorvastatin Calcium 20 MG TAB PO SCH (20:22)
[2021-07-04] MEDS: Latanoprost 0.005% Ophth Soln 2.5 ml Bottle EA EYE SCH (20:25)
[2021-07-05] MEDS: Aspirin 81 mg Enteric Coated Tablet PO SCH (09:14)
[2021-07-05] MEDS: Zinc Sulfate 220 MG CAP PO SCH (09:14)
[2021-07-05] MEDS: Famotidine 20 MG TAB PO SCH ×2 (09:14→21:33)
[2021-07-05] MEDS: Enoxaparin Sodium 40 MG/0.4 ML SYRINGE SC SCH (09:14)
[2021-07-05] MEDS: levETIRAcetam 500 MG TAB PO SCH ×2 (09:14→21:34)
[2021-07-05] MEDS: Lisinopril 5 MG TAB PO SCH (09:14)
[2021-07-05] MEDS: Hydrocortisone 10 mg Tablet PO SCH ×3 (09:14→21:32)
[2021-07-05] MEDS: Tamsulosin HCl 0.4 MG CAP PO SCH (09:14)
[2021-07-05] MEDS: Cholecalciferol 1,000 UNITS (25 MCG) TAB PO SCH (21:33)
[2021-07-05] MEDS: Atorvastatin Calcium 20 MG TAB PO SCH (21:34)
[2021-07-05] MEDS: Latanoprost 0.005% Ophth Soln 2.5 ml Bottle EA EYE SCH (21:35)
[2021-07-06] MEDS: Aspirin 81 mg Enteric Coated Tablet PO SCH (08:35)
[2021-07-06] MEDS: Enoxaparin Sodium 40 MG/0.4 ML SYRINGE SC SCH (08:35)
[2021-07-06] MEDS: Zinc Sulfate 220 MG CAP PO SCH (08:36)
[2021-07-06] MEDS: Famotidine 20 MG TAB PO SCH (08:36)
[2021-07-06] MEDS: Tamsulosin HCl 0.4 MG CAP PO SCH (08:36)
[2021-07-06] MEDS: Lisinopril 5 MG TAB PO SCH (08:36)
[2021-07-06] MEDS: levETIRAcetam 500 MG TAB PO SCH (08:36)
[2021-07-06] MEDS: Hydrocortisone 10 mg Tablet PO SCH ×2 (08:40→13:14)
[2021-07-06 11:23] VITALS: TEMP 98.3
[2021-07-06 12:14] VITALS: BP 120/75
== END 2021-07-06 14:30 | disposition home or self-care (01) | DRG 871 ==
LOC: ERS 12:30 → 2NO 15:38 → 2SW 06-26 10:22
PROVIDERS: ADMIT Hospitalist; ATTEND Internal Medicine
PROC: 8E0ZXY6 Isolation (ICD-10-PCS; principal; 2021-06-24)
PROC: 3E03329 Introduction of Other Anti-infective into Peripheral Vein, Percutaneous Approach (ICD-10-PCS; 2021-06-24)
DX: A41.89 Other specified sepsis (principal); J12.82 Pneumonia due to coronavirus disease 2019; U07.1 COVID-19; G93.41 Metabolic encephalopathy; I63.89 Other cerebral infarction; I21.A1 Myocardial infarction type 2; M62.82 Rhabdomyolysis; N17.9 Acute kidney failure, unspecified; E87.2 Acidosis; E87.6 Hypokalemia; R19.7 Diarrhea, unspecified; E11.9 Type 2 diabetes mellitus without complications; G93.89 Other specified disorders of brain; E03.8 Other specified hypothyroidism; G40.909 Epilepsy, unspecified, not intractable, without status epilepticus; Z79.84 Long term (current) use of oral hypoglycemic drugs; Z79.899 Other long term (current) drug therapy
CPT/HCPCS: 36415; 36416; 51701; 70450; 70496; 70498; 70551; 71045; 80048; 80053; 80061; 80202; 80306; 80307; 81003; 81015; 82550; 82553; 83036; 83605; 83690; 83735; 83880; 84100; 84132; 84439; 84443; 84484; 85025; 86140; 86780; 87040; 87086; 87149; 87804; 93005; 93306; 93880; 96365; 96366; 96367; J0692; J0696; J1650; J1953; J3370; J3475; J3490; J7050; Q9967; S0028; U0002

== ENCOUNTER 2021-10-28 12:38 | Emergency (ER) | payer MEDICARE, SELFPAY ==
[2021-10-28] MEDS ORDERED: levETIRAcetam 500 MG/5 ML VIAL ONE (13:12)
[2021-10-28 13:13] LABS: #Basophils 0.1 thou/uL (0.0-0.2); #Eosinphils 0.1 thou/uL (0.0-0.7); #Monocytes 0.4 thou/uL (0.11-0.59); #Neutrophils 5.4 thou/uL (1.40-6.50); %Basophils 1.7 % (0.0-1.0); %Eosinophils 0.7 % (0.0-10.0); %Lymphocytes 25.2 % (21.0-51.0); %Monocytes 4.9 % (0.0-10.0); %Neutrophils 67.5 % (42.0-75.0); Hemoglobin 12.6 g/dL (14.0-18.0); Mean Corpuscular HGB CONC 32.5 g/dL (32.0-36.0); Mean Corpuscular Hemoglobin 32.2 pg (27.0-31.0); Mean Corpuscular Volume 99.1 fL (78.0-98.0); Mean Platelet Volume 8.1 fL (7.4-10.4); Platelet Count 237 thou/uL (130-400); RBC Distribution Width 15.9 % (11.5-14.5); Red Blood Cell (RBC) Count 3.91 mill/uL (4.70-6.10); White Blood Cell (WBC) Count 7.9 thou/uL (4.8-10.8)
[2021-10-28 13:38] LABS: ALT (SGPT) 22 U/L (8-55); AST (SGOT) 15 U/L (5-34); Albumin 3.7 g/dL (3.4-4.8); Alkaline Phosphatase 59 U/L (40-110); Anion Gap 14 mmol/L (10-20); BUN (Urea Nitrogen) 17 mg/dL (8.4-25.7); Bilirubin, Total 0.9 mg/dL (0.2-1.2); Calc. Creatinine Clearance 0 mL/min (70-130); Calcium 8.9 mg/dL (7.8-10.44); Carbon Dioxide 27 mmol/L (23-31); Chloride 103 mmol/L (98-107); Globulin 2.4 g/dL (2.4-3.5); Glucose 112 mg/dL (83-110); Potassium 3.4 mmol/L (3.5-5.1); Protein, Total 6.1 g/dL (5.8-8.1); Sodium 141 mmol/L (136-145)
== END 2021-10-28 15:31 | disposition home or self-care (01) ==
LOC: ERS 12:38
DX: G40.909 Epilepsy, unspecified, not intractable, without status epilepticus (principal); E78.5 Hyperlipidemia, unspecified; E78.00 Pure hypercholesterolemia, unspecified
CPT/HCPCS: 70450; 71045; 80053; 83735; 84484; 85025; 93005; J1953; 36415; 96365; 96366

== ENCOUNTER 2021-11-03 05:10 | Inpatient (IN) | payer OTHER ==
[2021-11-03 06:34] VITALS: BMI 21.9
[2021-11-03] MEDS ORDERED: HumaLOG 300 UNITS/3 ML VIAL SC PRN ×2 (10:47)
[2021-11-03] MEDS ORDERED: Ondansetron PF 4 MG/2 ML Vial IVP PRN (10:47)
[2021-11-03] MEDS ORDERED: Acetaminophen 500 MG TAB PO PRN (10:47)
[2021-11-03] MEDS ORDERED: Dextrose 50% Abboject 50 ML SYRINGE SLOW IVP PRN (10:47)
[2021-11-03] MEDS ORDERED: Dextrose 5% in Water 1,000 ML IV PRN (10:47)
[2021-11-03] MEDS ORDERED: hydrALAZINE 20 MG/ML VIAL SLOW IVP PRN (10:47)
[2021-11-03] MEDS ORDERED: Ondansetron ODT 4 MG TAB PO PRN (10:47)
[2021-11-03] MEDS ORDERED: Potassium Chloride 20 MEQ TAB PO SCH (11:00)
[2021-11-03] MEDS: Potassium Chloride 20 MEQ TAB PO SCH (17:19)
[2021-11-03] MEDS: levETIRAcetam 500 MG TAB PO SCH (20:48)
[2021-11-03] MEDS: Atorvastatin Calcium 40 MG TAB PO SCH (20:48)
[2021-11-03] MEDS: Famotidine 20 MG TAB PO SCH (20:48)
[2021-11-03] MEDS: Latanoprost 0.005% Ophth Soln 2.5 ml Bottle EA EYE SCH (20:48)
[2021-11-04 04:20] LABS: #Eosinphils 0.1 thou/uL (0.0-0.7); #Lymphocytes 3.2 thou/uL (1.20-3.40); #Monocytes 0.6 thou/uL (0.11-0.59); #Neutrophils 3.8 thou/uL (1.40-6.50); %Basophils 0.5 % (0.0-1.0); %Eosinophils 1.5 % (0.0-10.0); %Lymphocytes 41.4 % (21.0-51.0); %Monocytes 8.3 % (0.0-10.0); %Neutrophils 48.3 % (42.0-75.0); Hemoglobin 13.3 g/dL (14.0-18.0); Mean Corpuscular HGB CONC 33.1 g/dL (32.0-36.0); Mean Corpuscular Hemoglobin 32.4 pg (27.0-31.0); Mean Corpuscular Volume 98.1 fL (78.0-98.0); Mean Platelet Volume 8.4 fL (7.4-10.4); Platelet Count 219 thou/uL (130-400); RBC Distribution Width 15.5 % (11.5-14.5); Red Blood Cell (RBC) Count 4.09 mill/uL (4.70-6.10); White Blood Cell (WBC) Count 7.8 thou/uL (4.8-10.8)
[2021-11-04 04:39] LABS: ALT (SGPT) 13 U/L (8-55); AST (SGOT) 14 U/L (5-34); Albumin 3.8 g/dL (3.4-4.8); Alkaline Phosphatase 62 U/L (40-110); Anion Gap 14 mmol/L (10-20); BUN (Urea Nitrogen) 11 mg/dL (8.4-25.7); Calc. Creatinine Clearance 101 mL/min (70-130); Calcium 9.4 mg/dL (7.8-10.44); Carbon Dioxide 25 mmol/L (23-31); Chloride 101 mmol/L (98-107); Globulin 2.9 g/dL (2.4-3.5); Glucose 82 mg/dL (83-110); Magnesium 1.9 mg/dL (1.6-2.6); Protein, Total 6.7 g/dL (5.8-8.1); Sodium 136 mmol/L (136-145)
[2021-11-04 04:56] LABS: Free T4 (Free Thyroxine) 0.92 ng/dL (0.70-1.48)
[2021-11-04] MEDS ORDERED: Levothyroxine Sodium 25 MCG TAB PO SCH (09:00)
[2021-11-04] MEDS: Tamsulosin HCl 0.4 MG CAP PO SCH (10:16)
[2021-11-04] MEDS: Potassium Chloride 20 MEQ TAB PO SCH ×2 (10:16→18:28)
[2021-11-04] MEDS: Famotidine 20 MG TAB PO SCH ×2 (10:17→20:29)
[2021-11-04] MEDS: levETIRAcetam 500 MG TAB PO SCH ×2 (10:17→20:29)
[2021-11-04] MEDS: Aspirin 81 mg Enteric Coated Tablet PO SCH (10:17)
[2021-11-04] MEDS: Latanoprost 0.005% Ophth Soln 2.5 ml Bottle EA EYE SCH (20:29)
[2021-11-04] MEDS: Atorvastatin Calcium 40 MG TAB PO SCH (20:29)
[2021-11-04] MEDS: Sodium Chloride 0.9% 1,000 ML IV SCH (22:19)
[2021-11-05 04:41] LABS: #Eosinphils 0.1 thou/uL (0.0-0.7); #Lymphocytes 2.9 thou/uL (1.20-3.40); #Monocytes 0.6 thou/uL (0.11-0.59); #Neutrophils 3.7 thou/uL (1.40-6.50); %Basophils 0.5 % (0.0-1.0); %Eosinophils 1.5 % (0.0-10.0); %Lymphocytes 39.8 % (21.0-51.0); %Monocytes 7.9 % (0.0-10.0); %Neutrophils 50.2 % (42.0-75.0); Hemoglobin 13.4 g/dL (14.0-18.0); Mean Corpuscular HGB CONC 32.1 g/dL (32.0-36.0); Mean Platelet Volume 8.7 fL (7.4-10.4); Platelet Count 222 thou/uL (130-400); RBC Distribution Width 15.6 % (11.5-14.5); Red Blood Cell (RBC) Count 4.07 mill/uL (4.70-6.10); White Blood Cell (WBC) Count 7.3 thou/uL (4.8-10.8)
[2021-11-05 05:03] LABS: Anion Gap 15 mmol/L (10-20); BUN (Urea Nitrogen) 11 mg/dL (8.4-25.7); Calc. Creatinine Clearance 94 mL/min (70-130); Calcium 9.1 mg/dL (7.8-10.44); Carbon Dioxide 26 mmol/L (23-31); Chloride 101 mmol/L (98-107); Glucose 119 mg/dL (83-110); Potassium 4.6 mmol/L (3.5-5.1); Sodium 137 mmol/L (136-145)
[2021-11-05] MEDS: Levothyroxine Sodium 25 MCG TAB PO SCH (05:13)
[2021-11-05] MEDS ORDERED: Sodium Chloride 0.9% 500 ML IV SCH (05:45)
[2021-11-05] MEDS: Potassium Chloride 20 MEQ TAB PO SCH ×2 (11:00→18:35)
[2021-11-05] MEDS: Sodium Chloride 0.9% 1,000 ML IV SCH (11:01)
[2021-11-05] MEDS: Aspirin 81 mg Enteric Coated Tablet PO SCH (11:01)
[2021-11-05] MEDS: Famotidine 20 MG TAB PO SCH ×2 (11:01→21:58)
[2021-11-05] MEDS: Tamsulosin HCl 0.4 MG CAP PO SCH (11:01)
[2021-11-05] MEDS: levETIRAcetam 500 MG TAB PO SCH ×2 (11:01→21:58)
[2021-11-05] MEDS: Atorvastatin Calcium 40 MG TAB PO SCH (21:58)
[2021-11-05] MEDS: Latanoprost 0.005% Ophth Soln 2.5 ml Bottle EA EYE SCH (21:58)
[2021-11-06] MEDS: Sodium Chloride 0.9% 1,000 ML IV SCH ×3 (03:26→21:26)
[2021-11-06 04:50] LABS: Anion Gap 11 mmol/L (10-20); BUN (Urea Nitrogen) 9 mg/dL (8.4-25.7); Calc. Creatinine Clearance 88 mL/min (70-130); Calcium 8.9 mg/dL (7.8-10.44); Carbon Dioxide 26 mmol/L (23-31); Chloride 104 mmol/L (98-107); Glucose 98 mg/dL (83-110); Potassium 4.3 mmol/L (3.5-5.1); Sodium 137 mmol/L (136-145)
[2021-11-06 04:57] LABS: #Eosinphils 0.1 thou/uL (0.0-0.7); #Lymphocytes 2.6 thou/uL (1.20-3.40); #Monocytes 0.4 thou/uL (0.11-0.59); #Neutrophils 2.6 thou/uL (1.40-6.50); %Basophils 0.2 % (0.0-1.0); %Eosinophils 2.4 % (0.0-10.0); %Lymphocytes 44.6 % (21.0-51.0); %Monocytes 7.7 % (0.0-10.0); %Neutrophils 45.2 % (42.0-75.0); Hemoglobin 12.4 g/dL (14.0-18.0); Mean Corpuscular HGB CONC 33.4 g/dL (32.0-36.0); Mean Corpuscular Hemoglobin 32.6 pg (27.0-31.0); Mean Corpuscular Volume 97.5 fL (78.0-98.0); Mean Platelet Volume 8.4 fL (7.4-10.4); Platelet Count 201 thou/uL (130-400); RBC Distribution Width 15.3 % (11.5-14.5); Red Blood Cell (RBC) Count 3.81 mill/uL (4.70-6.10); White Blood Cell (WBC) Count 5.7 thou/uL (4.8-10.8)
[2021-11-06] MEDS: Levothyroxine Sodium 25 MCG TAB PO SCH (05:55)
[2021-11-06] MEDS: Famotidine 20 MG TAB PO SCH ×2 (09:20→21:26)
[2021-11-06] MEDS: Potassium Chloride 20 MEQ TAB PO SCH ×2 (09:20→16:47)
[2021-11-06] MEDS: Aspirin 81 mg Enteric Coated Tablet PO SCH (09:20)
[2021-11-06] MEDS: Tamsulosin HCl 0.4 MG CAP PO SCH (09:20)
[2021-11-06] MEDS: levETIRAcetam 500 MG TAB PO SCH ×2 (09:21→21:26)
[2021-11-06] MEDS ORDERED: Magnevist 469MG/ML 20 ML VIAL ONE (13:18)
[2021-11-06] MEDS: Dexamethasone 4 MG TAB PO SCH ×2 (15:51→21:27)
[2021-11-06] MEDS: Atorvastatin Calcium 40 MG TAB PO SCH (21:26)
[2021-11-06] MEDS: Latanoprost 0.005% Ophth Soln 2.5 ml Bottle EA EYE SCH (21:29)
[2021-11-07 04:31] LABS: Anion Gap 13 mmol/L (10-20); BUN (Urea Nitrogen) 9 mg/dL (8.4-25.7); Calc. Creatinine Clearance 90 mL/min (70-130); Calcium 9.6 mg/dL (7.8-10.44); Carbon Dioxide 24 mmol/L (23-31); Chloride 103 mmol/L (98-107); Estimated GFR 92; Glucose 152 mg/dL (83-110); Potassium 4.6 mmol/L (3.5-5.1); Sodium 135 mmol/L (136-145)
[2021-11-07 04:35] LABS: Hemoglobin 13.1 g/dL (14.0-18.0); Hypochromia SLIGHT = 6-15 cells (100X) (0-5/hpf); Lymphocytes 9 % (21-51); MDiff Complete? YES; Mean Corpuscular HGB CONC 32.8 g/dL (32.0-36.0); Mean Corpuscular Hemoglobin 32.3 pg (27.0-31.0); Mean Corpuscular Volume 98.4 fL (78.0-98.0); Mean Platelet Volume 8.7 fL (7.4-10.4); Monocytes 4 % (0-10); Neutrophil 86 % (42-75); Platelet Count 234 thou/uL (130-400); Platelet Morphology Comment Appears Adequate; RBC Distribution Width 15.3 % (11.5-14.5); Reactive Lymphocytes 1 % (0-10); Red Blood Cell (RBC) Count 4.05 mill/uL (4.70-6.10); White Blood Cell (WBC) Count 4.8 thou/uL (4.8-10.8)
[2021-11-07] MEDS: Sodium Chloride 0.9% 1,000 ML IV SCH ×2 (04:38→10:46)
[2021-11-07] MEDS: Levothyroxine Sodium 25 MCG TAB PO SCH (05:34)
[2021-11-07] MEDS: Dexamethasone 4 MG TAB PO SCH ×2 (05:34→15:20)
[2021-11-07] MEDS: levETIRAcetam 500 MG TAB PO SCH ×2 (10:09→20:34)
[2021-11-07] MEDS: Potassium Chloride 20 MEQ TAB PO SCH ×2 (10:09→17:40)
[2021-11-07] MEDS: Tamsulosin HCl 0.4 MG CAP PO SCH (10:09)
[2021-11-07] MEDS: Famotidine 20 MG TAB PO SCH ×2 (10:09→20:35)
[2021-11-07] MEDS: Aspirin 81 mg Enteric Coated Tablet PO SCH (10:09)
[2021-11-07] MEDS: Atorvastatin Calcium 40 MG TAB PO SCH (20:34)
[2021-11-07] MEDS: Latanoprost 0.005% Ophth Soln 2.5 ml Bottle EA EYE SCH (21:00)
[2021-11-08] MEDS: Sodium Chloride 0.9% 1,000 ML IV SCH ×2 (01:20→08:20)
[2021-11-08] MEDS: Levothyroxine Sodium 25 MCG TAB PO SCH (05:27)
[2021-11-08] MEDS: levETIRAcetam 500 MG TAB PO SCH (08:20)
[2021-11-08] MEDS: Aspirin 81 mg Enteric Coated Tablet PO SCH (08:20)
[2021-11-08] MEDS: Potassium Chloride 20 MEQ TAB PO SCH (08:20)
[2021-11-08] MEDS: Famotidine 20 MG TAB PO SCH (08:20)
[2021-11-08] MEDS: Tamsulosin HCl 0.4 MG CAP PO SCH (08:27)
[2021-11-08] MEDS ORDERED: levETIRAcetam 500 MG TAB PO SCH (08:30)
[2021-11-08 15:43] VITALS: BP 129/88; TEMP 97.4
== END 2021-11-08 16:26 | disposition home or self-care (01) | DRG 101 ==
LOC: 2NO 06:14 → OBSVTOIN 11-05 16:28
PROVIDERS: ADMIT Internal Medicine; ATTEND Internal Medicine
DX: G40.909 Epilepsy, unspecified, not intractable, without status epilepticus (principal); E87.1 Hypo-osmolality and hyponatremia; Z20.822 Contact with and (suspected) exposure to COVID-19; R55 Syncope and collapse; E87.6 Hypokalemia; E03.9 Hypothyroidism, unspecified; R29.6 Repeated falls; N40.0 Benign prostatic hyperplasia without lower urinary tract symptoms; F32.A Depression, unspecified; R94.31 Abnormal electrocardiogram [ECG] [EKG]; D32.0 Benign neoplasm of cerebral meninges; Z28.21 Immunization not carried out because of patient refusal; Z86.73 Personal history of transient ischemic attack (TIA), and cerebral infarction without residual deficits; Z91.81 History of falling; Z86.16 Personal history of COVID-19; Z98.890 Other specified postprocedural states; Z79.899 Other long term (current) drug therapy; Z79.84 Long term (current) use of oral hypoglycemic drugs; Z79.890 Hormone replacement therapy; Z82.49 Family history of ischemic heart disease and other diseases of the circulatory system; Z87.891 Personal history of nicotine dependence; Z79.4 Long term (current) use of insulin
CPT/HCPCS: 36415; 36416; 70553; 80048; 80053; 83735; 84439; 84443; 85025; 95712; 95819; 95957; A9579; G0378; J1815; J7050; J8540; U0003; U0005